=== PATIENT | female | born 1965 | race Caucasian/White ===

== ENCOUNTER → 2019-05-09 | Outpatient (CLI) | payer BC | LOC: RAD 15:09 | DX: M18.12 Unilateral primary osteoarthritis of first carpometacarpal joint, left hand (principal) ==

== ENCOUNTER → 2021-08-02 | Outpatient (CLI) | payer BC | LOC: LAB 09:40 | DX: U07.1 COVID-19 (principal); J44.9 Chronic obstructive pulmonary disease, unspecified; B34.9 Viral infection, unspecified; I10 Essential (primary) hypertension ==